=== PATIENT | female | born 1995 | race African-American/Black ===

== ENCOUNTER 2025-06-14 23:12 | Emergency (ER) | payer BC ==
[~2025-06-14] VITALS: Ht 167.6 cm; Wt 111.1 kg
[2025-06-15 00:50] LABS: APPEARANCE,URINE CLEAR (CLEAR); BLOOD, URINE TRACE-INTA Ery/uL (NEGATIVE); LEUKOCYTE ESTERASE ,URINE TRACE (NEGATIVE); NITRITE, URINE NEGATIVE (NEGATIVE); UGLUCOSE NEGATIVE (NEGATIVE)
[2025-06-15 00:57] LABS: ADD URINE CULTURE NO; SQUAMOUS EPITHELIAL CELL,UR Few /HPF (None Seen)
[2025-06-15 01:03] LABS: PLATELET COUNT (AUTO) 241 K/uL (150-450); RED BLOOD CELL COUNT(AUTO) 4.07 MIL/uL (4.0-5.2); RED CELL DISTRIBUTION WIDTH 13.2 % (11.5-15.0); WHITE BLOOD COUNT (AUTO) 9.9 K/uL (4.3-11.0)
[2025-06-15 01:10] LABS: CALCIUM, SERUM 8.9 mg/dL (8.5-10.1); CREATININE 0.7 mg/dL (0.6-1.3); SODIUM SERUM 137.0 mmol/L (136-145); UREA NITROGEN, BLOOD 8.0 mg/dL (7-18)
[2025-06-15 01:16] LABS: INR 0.98 (0.91-1.10)
[2025-06-15 01:38] LABS: ASPARTATE AMINOTRANSFERASE 11.0 U/L (15-37); PREGNANCY TEST SERUM QUAN 40561.0 mIU/mL (0-6); TOTAL PROTEIN, SERUM 7.0 g/dL (6.4-8.2)
[2025-06-15 02:18] VITALS: BP 154/90; TEMP 98; O2SAT 99
== END 2025-06-15 02:19 | disposition home or self-care (01) ==
LOC: ER 23:15
DX: O26.891 Other specified pregnancy related conditions, first trimester (principal); R10.84 Generalized abdominal pain; Z3A.01 Less than 8 weeks gestation of pregnancy
CPT/HCPCS: 36415; 76856-TC; 80048-TC; 80076-TC; 81001; 84702-TC; 85025-TC; 85730-TC